=== PATIENT | male | born 1965 | race Native Hawaiian/Other Pacific Islander ===

== ENCOUNTER 2019-07-06 07:23 | Day surgery (SDC) | payer OTHER ==
[2019-07-06 08:20] LABS: PLATELET COUNT 120 K/uL (142-355)
[2019-07-06 08:39] LABS: POTASSIUM 4.3 mmol/L (3.6-5.2)
== END 2019-07-06 18:18 | disposition home or self-care (01) ==
LOC: OR 07:23
PROVIDERS: Internal Medicine
PROC: 0DBK8ZZ Excision of Ascending Colon, Via Natural or Artificial Opening Endoscopic (ICD-10-PCS; principal; 2019-07-06)
DX: D12.2 Benign neoplasm of ascending colon (principal); K64.8 Other hemorrhoids; Z12.11 Encounter for screening for malignant neoplasm of colon; Z86.010 Personal history of colon polyps
CPT/HCPCS: 80053; 85027; J2704

== ENCOUNTER 2021-09-04 10:46 | Outpatient (CLI) | payer OTHER | END 2021-09-04 19:10 | disposition home or self-care (01) | LOC: US 10:46 | PROVIDERS: ATTEND Nurse Practitioner Family | DX: R01.1 Cardiac murmur, unspecified (principal); K75.81 Nonalcoholic steatohepatitis (NASH) ==